=== PATIENT | male | born 1975 | race African-American/Black ===

== ENCOUNTER 2018-09-08 23:16 | Emergency (ER) | payer MEDICARE ==
[~2018-09-08] VITALS: Ht 182.9 cm; Wt 108.0 kg
[2018-09-09 03:58] VITALS: BP 166/85
== END 2018-09-09 03:44 | disposition home or self-care (01) ==
LOC: ER 23:16
DX: M25.512 Pain in left shoulder (principal); Z86.73 Personal history of transient ischemic attack (TIA), and cerebral infarction without residual deficits